=== PATIENT | male | born 1960 | race Caucasian/White ===

== ENCOUNTER 2017-12-30 13:18 | Emergency (ER) | payer OTHER ==
[~2017-12-30 13:18] MED LIST: NA CHLORIDE 0.9% 2,000 ML ONE; RSI MEDICATION KIT IV ONE
[2017-12-30] MEDS ORDERED: AMIODARONE HCL 150 MG/3 ML INJ IV ONE (13:19)
[2017-12-30] MEDS ORDERED: Caclcium Chloride 10% INJ SYR IV ONE (13:19)
[2017-12-30] MEDS ORDERED: EPINEPHrine 1 MG/10 ML SYR IV ONE (13:19)
--- NOTE | 2017-12-30 14:05 | ER ---
Nurse's Notes [facility] Name: Edi Lovell Age: 57 yrs Sex: Male : 1960 Arrival Date: 12/30/2017 Time: 13:36 Bed 4 Private MD: Diagnosis: Cardiopulmonary Arrest Presentation: 12/30 13:14 Presenting complaint: EMS states: PER EMS "MID-50'S MALE FOUND DOWN ON THE GOLF COURSE. bp 911 CALLED AT 1239 AND PD FOUND HIM NOT BREATHING AND PULSELESS AND STARTED CPR. WE ARRIVED AND PUT HIM ON THE THUMPER. EN ROUTE, WE SHOCKED 8 TIMES, STARTED A 20 GAUGE IN THE L AC, GAVE 2 EPI, 1 BICARB. PT STARTED IN ASYSTOLE, CONVERTED TO V FIB AND HAS BEEN IN V FIB SINCE.". Care prior to arrival: CPR via thumper performed by EMS was defibrillated and is still in progress Placed on backboard. Medication(s) given: 2 EPI, 1 BICARB IV initiated. 20 GA, in the left antecubital area, Oxygen administered. via AMBU bag. Compressions began at 12:39. 13:14 Method Of Arrival: EMS: [facility] bp 13:14 Acuity: WILMA 1 bp 13:14 Transition of care: patient was not received from another setting of care. Onset of bp symptoms was December 30, 2017 at 12:39. Risk Assessment: Do you want to hurt yourself or someone else? Unable to obtain. Initial Sepsis Screen: Does the patient meet any 2 criteria? No. Patient's initial sepsis screen is negative. Does the patient have a suspected source of infection? No. Patient's initial sepsis screen is negative. Triage Assessment: 13:30 Pain: Unable to use pain scale. Patient is unresponsive. bp Historical: - Allergies: 13:14 No Known Allergies; bp - Home Meds: 13:14 Unable to obtain [Active]; bp - PMHx: 13:14 Unable to obtain; bp - PSHx: 13:14 Unable to obtain; bp - Immunization history:: Adult Immunizations unknown. - Social history:: Smoking status: unknown. - Code Status:: unknown. - Ebola Screening: : Unable to complete screening because patient is unresponsive. - Unable to obtain history due to: unresponsive. Screenin:14 Abuse screen: UNABLE TO OBTAIN. Nutritional screening: UNABLE TO OBTAIN. Tuberculosis bp screening: UNABLE TO OBTAIN. 14:03 Fall Risk None identified. bp Assessment: 13:14 CPR assessment: unresponsive, pupils fixed \\T\\ dilated, no respiratory effort, Ambu bp ventilation, pulses present w/ compressions. Cardiac rhythm is asystole. General: Appears CPR IN PROCESS, UNRESPONSIVE. Behavior is unresponsive. Neuro: Level of Consciousness is unresponsive. EENT: No deficits noted. Cardiovascular: CPR IN PROCESS. Respiratory: Airway is patent VENTILATED WITH BVM. GI: Abdomen is obese. : No deficits noted. Derm: Skin is dusky, Skin temperature is cool. 15:30 Reassessment: Point of Contact (Father): [phone]. 18:36 Reassessment: Spoke with [facility] who is waiting to hear back from patient's ss father to transfer patient to their facility for cooling. 19:23 Reassessment: called [employer] for update on pt spoke to Lisa who said they had not bb been able to contact pt's father and that we "could do what we normally do" Lisa stated they would continue to try and contact the pt's father and would call back at 2300. 19:44 Reassessment: spoke to Judge Perry notified him [employer] was still unable to contact pt's father and he stated he would try and contact the father. He had spoke to pt's father earlier who told him he was unable to make a decision on a home at this time. Judge Perry will try and contact the father again and if unable to contact him he will make a decision on the home and will then call back to notify us. 19:54 Reassessment: Judge Perry called family and spoke to Ms Lovell who agreed to send pt to [facility]. Judge Perry will notify the home. 21:02 Reassessment: body released to [facility]. ak1 Vital Signs: 13:14 BP 0 / 0; Pulse 0; Resp 0; Temp 96.7; Weight 127.01 kg; bp ED Course: 13:14 Patient has correct armband on for positive identification. Placed in gown. Bed in low bp position. 13:14 Maintain EMS IV. Dressing intact. Good blood return noted. Site clean \\T\\ dry. Gauge \\T\\ bp site: 20 GAUGE LEFT AC. 13:14 cardiac monitor on. Pulse ox on. NIBP on. bp 13:14 Patient has correct armband on for positive identification. Bed in low position. bp 13:14 Arm band placed on. bp 13:18 Assisted provider with intubation using 7.0 mm ETT via oral route. ET tube secured at bp 22cm at the teeth. Set up intubation tray. Intubated by Cisco KENYON Placement verified by CO2 detector w/ + color change, auscultating bilateral breath sounds, Patient tolerated well. 13:20 Assisted provider with central line placement. Set up central line tray. Triple lumen bp line placed in right femoral. Line placed by Burt Parks MD Placement verified by blood return, Dressed with Tegaderm, Patient tolerated well. Before procedure, did Practitioner(s) obtain informed consent? No. Patient \\T\\ family education about procedure, CLABSI prevention and S/S of infection? No. Time-out/Briefing performed prior to start of procedure? No. Was handwashing/sanitizing done immediately prior to procedure? Yes. Was patient positioned to in a way to prevent air embolism? Yes. Was procedure site sterilized? Yes, with chlorhexidine. Was the site allowed to dry? No. Was local anesthetic and/or sedation utilized? N/A. During the procedure, did the Practitioner(s) maintain a sterile field? Yes. Were unused ports clamped during insertion? Yes. Was a 2nd qualified MD obtained after 3 unsuccessful insertion attempts? No. Was blood aspirated from each lumen? Yes. After the procedure, did the Practitioner(s) clean the site and apply a sterile dressing? Yes. 13:[address] FOR POSSIBLE ME CASE. bp 13:36 Patient arrived in ED. bd 13:41 Pradeep Madera, BAIRON is Primary Nurse. bp 13:50 Triage completed. bp 14:03 Burt Parks MD is Attending Physician. kdr 14:04 Burt Parks MD is Pronouncing Provider. kdr 14:05 notified seferino bell to have pv design engineer come to er. bd Administered Medications: No medications were administered Point of Care Testing: Blood Glucose: 13:21 Blood Glucose: 124 mg/dL; bp Ranges: Outcome: 13:30 Outcome Patient bp 13:30 Patient : Time of 13:30 Pronounced by Burt Parks MD 13:30 Condition: 21:04 Patient left the ED. ak1 Signatures: Lolly Young Kevin, MD MD [facility] My Albert RN RN Lana Conner RN RN Tomasa Simeon, RN RN ak1 Pradeep Madera RN RN bp Corrections: (The following items were deleted from the chart) 13:14 Outcome Patient bp bp : 13:14 Patient : Time of 13:30 Pronounced by Burt Parks MD bp bp :55 13:14 Condition: bp bp 18:36 18:36 Reassessment: Spoke with [employer] who is waiting to hear back from patient's ss father to transfer patient to their facility. ss
--- NOTE | 2017-12-30 14:05 | EDPHYS ---
Physician Documentation [facility] Name: Edi Lovell Age: 57 yrs Sex: Male : 1960 Arrival Date: 12/30/2017 Time: 13:36 Bed 4 Private MD: ED Physician Burt Parks HPI: 12/30 15:34 This 57 yrs old Male presents to ER via EMS with complaints of CPR. kdr 15:34 Preceding the arrest, the patient collapsed, was found down by bystander. The arrest kdr occurred [place]. There were no known individuals with him at the time. Pre-hospital course: The arrest was not witnessed by others. Bystanders at the scene did not perform CPR. ACLS details: Initial rhythm was asystole. The presenting rhythm is V-fib. Airway: LMA, Medications given by EMS prior to arrival - Epinephrine IV x 2 doses. It is unknown whether or not the patient has had similar symptoms in the past. It is unknown whether or not the patient has recently seen a physician. Historical: - Allergies: 13:14 No Known Allergies; bp - Home Meds: 13:14 Unable to obtain [Active]; bp - PMHx: 13:14 Unable to obtain; bp - PSHx: 13:14 Unable to obtain; bp - Immunization history:: Adult Immunizations unknown. - Social history:: Smoking status: unknown. - Code Status:: unknown. - Ebola Screening: : Unable to complete screening because patient is unresponsive. - Unable to obtain history due to: unresponsive. ROS: 15:34 Constitutional: Unobtainable kdr 15:34 Unable to obtain ROS due to patient is on ventilator. Exam: 15:34 Constitutional: This is a well developed, well nourished patient who was unresponsive. kdr The patient airway on presentation was managed wtih an LMA. This was replaced with an ET tube as per note. The patient initial rhythm was fine v-fib vs asystole. Medications were given per protocol (see the nursing notes). At no time was there any spontaneous perfusing rhythm. A central line was established on the second try on the right femoral vein after sterile technique had been used to establish the site of entry Eyes: Pupilse fixed and dilated Neck: Trachea midline, no thyromegaly or masses palpated, and no cervical lymphadenopathy. Supple, full range of motion without nuchal rigidity, or vertebral point tenderness. No Meningismus. Chest/axilla: Normal chest wall appearance and motion. Nontender with no deformity. No lesions are appreciated. 15:34 Cardiovascular: Rate: Asystole. Vital Signs: 13:14 BP 0 / 0; Pulse 0; Resp 0; Temp 96.7; Weight 127.01 kg; bp Procedures: 13:52 Intubation: Ventilated with 100% NRB prior to procedure. Intubated orally using # 4 jr8 Fiona blade with 7.5 mm ETT. was successful on first attempt. Ventilated with Ambu bag. Tube secured with ETT belle at center of mouth measured 22 cm at teeth. Placement verified by CO2 detector with (+) color change, auscultating bilateral breath sounds. 15:34 Central Line: the site was prepped with Betadine, in sterile fashion, a triple lumen kdr catheter was inserted, in the right femoral vein, in 2 attempts. placement was verified, by blood return, the site was dressed with the patient tolerated the procedure, well. MDM: 14:04 Patient medically screened. kdr 15:34 Data reviewed: vital signs, nurses notes. kdr Administered Medications: No medications were administered Point of Care Testing: Blood Glucose: 13:21 Blood Glucose: 124 mg/dL; bp Ranges: Critical Glucose Levels:Adult <50 mg/dl or >400 mg/dl <40 mg/dl or >180 mg/dl Disposition: 14:03 . I agree with the assessment and plan of care. kdr Disposition: Patient pronounced on 12/30/17 13:30 by Burt Parks. Impression: Cardiopulmonary Arrest. - Released to [employer]. Signatures: Burt Parks MD MD kdr Cisco Reyes PA PA [id number] Tomasa Simeon RN RN ak1 Pradeep Madera RN RN bp Corrections: (The following items were deleted from the chart) 21:04 14:04 12/30/2017 14:04 Patient pronounced on 12/30/2017 at 13:30 by Burt Parks. ak1 Impression: Cardiopulmonary Arrest. Released to Fan Blade Aligner. kdr
== END 2017-12-30 21:04 ==
LOC: ER 13:18
PROC: 0BH17EZ Insertion of Endotracheal Airway into Trachea, Via Natural or Artificial Opening (ICD-10-PCS; principal; 2017-12-30)
PROC: 5A1935Z Respiratory Ventilation, Less than 24 Consecutive Hours (ICD-10-PCS; 2017-12-30)
PROC: 06HM33Z Insertion of Infusion Device into Right Femoral Vein, Percutaneous Approach (ICD-10-PCS; 2017-12-30)
DX: I46.9 Cardiac arrest, cause unspecified (principal)
CPT/HCPCS: 31500; 92950; 99285; J0171; J0282; J7030